=== PATIENT | female | born 2000 | race American Indian/Alaskan Native ===

== ENCOUNTER 2021-05-12 08:00 | Outpatient (CLI) | payer OTHER | END 2021-05-12 08:30 | disposition home or self-care (01) | LOC: PPH VACUNA 08:00 | DX: Z23 Encounter for immunization (principal) ==

== ENCOUNTER 2021-06-01 08:01 | Outpatient (CLI) | payer OTHER | END 2021-06-01 08:10 | disposition home or self-care (01) | LOC: PPH VACUNA 08:01 | PROVIDERS: ATTEND Emergency Medicine Pediatric Emergency Medicine | DX: Z23 Encounter for immunization (principal) ==